=== PATIENT | female | born 1955 | race Hispanic/Latino ===

== ENCOUNTER 2017-03-11 19:25 | Emergency (ER) | payer MEDICARE ==
[2017-03-11 20:40] LABS: Basophils % (Auto) 0.8 % (0.0-1.8); Mean Corpuscular HGB Conc 36 % (30-34); Mean Corpuscular Hemoglobin 33 pg (28-32); Mean Corpuscular Volume 92 fl (79-97); Platelet Count 220 K/mm3 (140-440); Red Blood Count 4.49 M/mm3 (3.65-5.03); Red Cell Distribution Width 13.4 % (13.2-15.2); White Blood Count 8.4 K/mm3 (4.5-11.0)
[2017-03-11 20:44] LABS: Hematocrit 41.5 % (30.3-42.9)
[2017-03-11 21:03] LABS: Alanine Aminotransferase 20 units/L (7-56); Albumin 4.2 g/dL (3.9-5); Albumin/Globulin Ratio 1.6 %; Alkaline Phosphatase 50 units/L (35-129); Anion Gap 20 mmol/L; Blood Urea Nitrogen 10 mg/dL (7-17); Calcium 9.5 mg/dL (8.4-10.2); Carbon Dioxide 25 mmol/L (22-30); Chloride 100.5 mmol/L (98-107); Glucose 113 mg/dL (65-100); Potassium 4.7 mmol/L (3.6-5.0); Sodium 141 mmol/L (137-145); Total Protein 6.9 g/dL (6.3-8.2)
[2017-03-11 21:39] LABS: Bilirubin,Urine NEG (Negative); Blood,Urine NEG (Negative); Ketones,Urine NEG (Negative); Leukocyte Esterase,Urine NEG (Negative); Nitrite,Urine NEG (Negative); Protein,Urine <15 mg/dL mg/dL (Negative); Urobilinogen,Urine < 2.0 mg/dL (<2.0)
[2017-03-11] MEDS ORDERED: ZOFRAN ONE (21:42)
[2017-03-11] MEDS ORDERED: DILAUDID ONE (21:43)
[2017-03-11] MEDS ORDERED: ZOFRAN IM ONE (21:45)
[2017-03-11] MEDS ORDERED: DILAUDID IM ONE (21:45)
--- NOTE | 2017-03-11 23:14 | Cat Scan Report ---
FINAL REPORT EXAM: CT ABDOMEN PELVIS W CON HISTORY: abd pain TECHNIQUE: Serial axial images through the abdomen and pelvis with coronal and sagittal reconstruction. PRIORS: None. FINDINGS: There is mild atelectasis in the anterior aspect of the upper lobe and medial aspect of the right middle lobe. No pleural effusion is seen. Gallbladder is surgically absent. The liver, pancreas, spleen and adrenal glands appear within normal limits. Kidneys appear normal. Aorta is normal in caliber. Bladder appears normal. No gross abnormality is seen in the uterus or adnexa. Appendix appears normal. Scattered diverticula are seen arising from the colon. No free fluid. There are degenerative changes in the spine. Sequelae from L4-5 fusion are noted. IMPRESSION: 1. Normal appearing appendix. 2. No free fluid or inflammatory changes are seen in the abdomen or pelvis. 3. Diverticulosis.
--- NOTE | 2017-03-11 23:48 | Emergency Department Report ---
HPI - General Chief Complaint: Abdominal Pain Time Seen by Provider: 03/11/17 20:29 - HPI HPI: 62-year-old female presents to ED with abdominal pain right upper quadrant pain starting on this morning patient had a history of gallstones status post cholecystectomy. She states that her pain is accompanied by nausea , vomiting and urinary symptoms but no diarrhea. Patient has not taking any medication at home for his symptoms. She denies any exacerbating factors. She denies any alleviating factors. She denies any recent travel, or unusual foods. She denies any sick contacts. MD Complaint: abdominal pain -: Gradual Location: Right upper quadrant Radiation: none Migration to: no migration Severity scale (0 -10): 10 Quality: sharp Improves With: nothing Associated Symptoms: nausea, vomiting, chills ED Past Medical Hx - Past Medical History Previous Medical History?: Yes Hx Hypertension: Yes Hx CVA: Yes (x2) Hx Heart Attack/AMI: No Hx Congestive Heart Failure: No Hx Diabetes: No Hx Deep Vein Thrombosis: No Hx Pulmonary Embolism: No Hx GERD: No Hx Liver Disease: No Hx Renal Disease: No Hx Sickle Cell Disease: No Hx Arthritis: Yes Hx Headaches / Migraines: No Hx Seizures: No Hx Kidney Stones: No Hx Psychiatric Treatment: No Hx Asthma: No Hx COPD: Yes Hx Tuberculosis: No Hx Dementia: No Hx HIV: No - Surgical History Past Surgical History?: Yes Hx Coronary Stent: No Hx Open Heart Surgery: No Hx Pacemaker: No Hx Internal Defibrillator: No Hx Cholecystectomy: Yes (2yrs ago) Hx Appendectomy: No Hx Breast Surgery: No Additional Surgical History: surgery on back x4. bladder surgery as a child. Tonsils removed as well - Social History Smoking Status: Current Every Day Smoker Substance Use Type: Alcohol - Medications Home Medications: Home Medications Medication Instructions Recorded Confirmed Last Taken Type Gabapentin 300 mg PO TID 09/07/14 09/07/14 Unknown History HYDROcodone/APAP 10-325 [Lamont 1 mg PO TID 09/07/14 09/07/14 Unknown History 10-325 mg TAB] Omeprazole [PriLOSEC] 20 mg PO DAILY 09/07/14 09/07/14 Unknown History tiZANidine [Zanaflex] 4 mg PO QHS 09/07/14 09/07/14 Unknown History Diazepam Tab [Valium] 5 mg PO BID PRN #10 tablet 09/08/14 Unknown Rx HYDROcodone/APAP 10-325 [Lamont 1 each PO Q8HR PRN #20 tablet 09/08/14 Unknown Rx 10/325] Naproxen [Naprosyn TAB] 500 mg PO BID PRN #30 tablet 09/08/14 Unknown Rx Dicyclomine [Bentyl] 10 mg PO QID #30 capsule 03/11/17 Unknown Rx ED Review of Systems ROS: Stated complaint: NAUSEA, STOMACH PAIN AND RIGHT SIDE PAIN Other details as noted in HPI Comment: All other systems reviewed and negative Cardiovascular: denies: chest pain, palpitations Endocrine: no symptoms reported Gastrointestinal: abdominal pain, nausea Genitourinary: as per HPI Physical Exam - Physical Exam Vital Signs: Vital Signs 03/11/17 03/11/17 19:53 22:17 Temperature 97.9 F Pulse Rate 91 H Respiratory 26 H 14 Rate Blood Pressure 128/76 O2 Sat by Pulse 99 Oximetry Physical Exam: Physical Exam: - General Limitations: No Limitations General appearance: alert, in no apparent distress - Head Head exam: Present: atraumatic, normocephalic - Eye Eye exam: Present: normal appearance - ENT ENT exam: Present: mucous membranes moist - Neck Neck exam: Present: normal inspection - Respiratory Respiratory exam: Present: normal lung sounds bilaterally. Absent: respiratory distress - Cardiovascular Cardiovascular Exam: Present: normal rhythm. Absent: systolic murmur, diastolic murmur, rubs, gallop - GI/Abdominal GI/Abdominal exam: Present: soft, epigastric tenderness - Extremities Exam Extremities exam: Present: normal inspection - Back Exam Back exam: Present: normal inspection - Neurological Exam Neurological exam: Present: alert, oriented X3 - Psychiatric Psychiatric exam: normal affect and mood - Skin Skin exam: Present: warm, dry, intact, normal color. Absent: rash ED Course Vital Signs 03/11/17 03/11/17 19:53 22:17 Temperature 97.9 F Pulse Rate 91 H Respiratory 26 H 14 Rate Blood Pressure 128/76 O2 Sat by Pulse 99 Oximetry ED Medical Decision Making - Lab Data Result diagrams: 03/11/17 20:11 03/11/17 20:11 Critical care attestation.: If time is entered above; I have spent that time in minutes in the direct care of this critically ill patient, excluding procedure time. ED Disposition Clinical Impression: Abdominal pain Qualifiers: Abdominal location: generalized Qualified Code(s): R10.84 - Generalized abdominal pain Disposition: TO HOME OR SELFCARE Is pt being admited?: No Does the pt Need Aspirin: No Condition: Stable Instructions: Abdominal Pain (ED) Prescriptions: Dicyclomine [Bentyl] 10 mg PO QID #30 capsule Referrals: PRIMARY CARE, [Primary Care Provider] - 3-5 Days
[2017-03-12 02:42] VITALS: BP 136/74
== END 2017-03-12 01:07 | disposition home or self-care (01) ==
LOC: ED 19:25
DX: R10.84 Generalized abdominal pain (principal); I10 Essential (primary) hypertension; Z86.73 Personal history of transient ischemic attack (TIA), and cerebral infarction without residual deficits; M19.90 Unspecified osteoarthritis, unspecified site; J44.9 Chronic obstructive pulmonary disease, unspecified; F17.200 Nicotine dependence, unspecified, uncomplicated
CPT/HCPCS: 36415; 74177; 80053; 81001; 83690; 85025; 96372; 99284; J1170; J2405; Q9967

== ENCOUNTER 2017-04-12 20:38 | Emergency (ER) | payer MEDICARE ==
--- NOTE | 2017-04-12 22:03 | Cat Scan Report ---
FINAL REPORT PROCEDURE: CT HEAD/BRAIN WO CON TECHNIQUE: Computerized tomography of the head was performed without contrast material. HISTORY: neuro deficits \T\lt; 6hrs or sx present upon awakening COMPARISON: No prior studies are available for comparison. FINDINGS: No CT evidence of intracranial mass, hemorrhage, acute territorial infarction, or hydrocephalus. Choroid calcifications are noted bilaterally. Calvarium is intact. Visualized paranasal sinuses are aerated. There is a small amount of fluid density in the right mastoid. IMPRESSION: No CT evidence of acute intracranial abnormality
[2017-04-12 22:14] LABS: Urine Drugs of Abuse Note Disclamer
[2017-04-12 22:31] LABS: Bilirubin,Urine NEG (Negative); Blood,Urine SM (Negative); Ketones,Urine NEG (Negative); Leukocyte Esterase,Urine NEG (Negative); Mucus,Urine FEW /HPF; Nitrite,Urine NEG (Negative); Protein,Urine <15 mg/dL mg/dL (Negative); Urobilinogen,Urine < 2.0 mg/dL (<2.0)
[2017-04-12 22:45] LABS: Basophils % (Auto) 0.9 % (0.0-1.8); Eosinophils % (Auto) 0.1 % (0.0-4.3); Hematocrit 41.4 % (30.3-42.9); Hemoglobin 14.5 gm/dl (10.1-14.3); Mean Corpuscular HGB Conc 35 % (30-34); Mean Corpuscular Hemoglobin 33 pg (28-32); Mean Corpuscular Volume 93 fl (79-97); Platelet Count 224 K/mm3 (140-440); Red Blood Count 4.47 M/mm3 (3.65-5.03); Red Cell Distribution Width 13.3 % (13.2-15.2); White Blood Count 9.8 K/mm3 (4.5-11.0)
[2017-04-12 22:54] LABS: Alanine Aminotransferase 18 units/L (7-56); Albumin 4.3 g/dL (3.9-5); Albumin/Globulin Ratio 1.7 %; Alkaline Phosphatase 47 units/L (35-129); Anion Gap 19 mmol/L; BUN/Creatinine Ratio 10; Blood Urea Nitrogen 8 mg/dL (7-17); Carbon Dioxide 28 mmol/L (22-30); Chloride 104.6 mmol/L (98-107); Glucose 117 mg/dL (65-100); Potassium 4.5 mmol/L (3.6-5.0); Sodium 147 mmol/L (137-145); Total Protein 6.8 g/dL (6.3-8.2)
[2017-04-12 22:56] LABS: INR 0.85 (0.87-1.13); Partial Thromboplastin Time 27.9 Sec. (24.2-36.6)
--- NOTE | 2017-04-13 01:23 | Emergency Department Report ---
ED General Adult HPI - General Chief complaint: Neuro Symptoms/Deficit Stated complaint: DIZZY Time Seen by Provider: 04/13/17 01:05 Source: patient, RN notes reviewed, old records reviewed Mode of arrival: Ambulatory Limitations: No Limitations - History of Present Illness Initial comments: This is a 62-year-old female, the patient is previously unknown to this provider. She reports a history of transient ischemic attack, is currently on Plavix, endorses compliance with Plavix, and also has a history of chronic pain , back pain, has her pain specialist Dr. Johnston The patient reports taking multiple sedating medications, including Percocet, gabapentin, and diazepam. The patient presents to the ER with a complaint of dizziness, visual disturbance, and "confusion." The symptoms have been present for weeks to months. Patient describes the dizziness as a sensation of "head spinning." She reports "buzzing" over the past few weeks. There is no trauma, there is no neck pain, there is no neck stiffness. She reports that in mid December , she was watching TV, and saw" splash of right" all over her right eye. This was painless. It lasted for 1 day in December. It has since resolved. Since then , she endorses intermittent "blurry vision" for weeks and months. She can't recall the last time she got her eyes checked by an heel room supervisor or admissions manager. She is not having any head pain or neck pain. Patient also endorses a sensation of "confusion." She reports that she sometimes "doesn't know where I am." This has been going on for weeks to months. She describes dysuria, and chronic "hard esophagus." There is no temporal pain. There is no extremity weakness focally, there is no shortening on this, there are no falls. -: Gradual Consistency: intermittent Improves with: none Worsens with: none Associated Symptoms: confusion, weakness - Related Data Home Medications Medication Instructions Recorded Confirmed Last Taken Gabapentin 300 mg PO TID 09/07/14 09/07/14 Unknown HYDROcodone/APAP 10-325 [[place] 1 mg PO TID 09/07/14 09/07/14 Unknown 10-325 mg TAB] Omeprazole [PriLOSEC] 20 mg PO DAILY 09/07/14 09/07/14 Unknown tiZANidine [Zanaflex] 4 mg PO QHS 09/07/14 09/07/14 Unknown Previous Rx's Medication Instructions Recorded Last Taken Type Diazepam Tab [Valium] 5 mg PO BID PRN #10 tablet 09/08/14 Unknown Rx HYDROcodone/APAP 10-325 [[place] 1 each PO Q8HR PRN #20 tablet 09/08/14 Unknown Rx 10/325] Naproxen [Naprosyn TAB] 500 mg PO BID PRN #30 tablet 09/08/14 Unknown Rx Dicyclomine [Bentyl] 10 mg PO QID #30 capsule 03/11/17 Unknown Rx Allergies Allergy/AdvReac Type Severity Reaction Status Date / Time No Known Allergies Allergy Verified 01/21/14 00:33 ED Review of Systems ROS: Stated complaint: DIZZY Other details as noted in HPI Constitutional: malaise, weakness Eyes: vision change. denies: eye pain ENT: denies: throat pain Respiratory: denies: cough Cardiovascular: denies: chest pain Gastrointestinal: denies: vomiting Genitourinary: dysuria Musculoskeletal: back pain, arthralgia, myalgia Skin: denies: lesions Neurological: weakness Psychiatric: anxiety ED Past Medical Hx - Past Medical History Previous Medical History?: Yes Hx Hypertension: Yes Hx CVA: Yes (x2) Hx Heart Attack/AMI: No Hx Congestive Heart Failure: No Hx Diabetes: No Hx Deep Vein Thrombosis: No Hx Pulmonary Embolism: No Hx GERD: No Hx Liver Disease: No Hx Renal Disease: No Hx Sickle Cell Disease: No Hx Arthritis: Yes Hx Headaches / Migraines: No Hx Seizures: No Hx Kidney Stones: No Hx Psychiatric Treatment: No Hx Asthma: No Hx COPD: Yes Hx Tuberculosis: No Hx Dementia: No Hx HIV: No - Surgical History Past Surgical History?: Yes Hx Coronary Stent: No Hx Open Heart Surgery: No Hx Pacemaker: No Hx Internal Defibrillator: No Hx Cholecystectomy: Yes (2yrs ago) Hx Appendectomy: No Hx Breast Surgery: No Additional Surgical History: surgery on back x4. bladder surgery as a child. Tonsils removed as well - Social History Smoking Status: Current Every Day Smoker Substance Use Type: Alcohol - Medications Home Medications: Home Medications Medication Instructions Recorded Confirmed Last Taken Type Gabapentin 300 mg PO TID 09/07/14 09/07/14 Unknown History HYDROcodone/APAP 10-325 [[place] 1 mg PO TID 03/07/15 03/07/15 Unknown History 10-325 mg TAB] Omeprazole [PriLOSEC] 20 mg PO DAILY 09/07/14 09/07/14 Unknown History tiZANidine [Zanaflex] 4 mg PO QHS 09/07/14 09/07/14 Unknown History Diazepam Tab [Valium] 5 mg PO BID PRN #10 tablet 09/08/14 Unknown Rx HYDROcodone/APAP 10-325 [[place] 1 each PO Q8HR PRN #20 tablet 09/08/14 Unknown Rx 10/325] Naproxen [Naprosyn TAB] 500 mg PO BID PRN #30 tablet 09/08/14 Unknown Rx Dicyclomine [Bentyl] 10 mg PO QID #30 capsule 03/11/17 Unknown Rx ED Physical Exam - General Limitations: No Limitations General appearance: alert, in no apparent distress, other (there is no mastoid tenderness. There is no asymmetry to the ears.) - Head Head exam: Present: atraumatic, normocephalic - Eye Eye exam: Present: normal appearance, PERRL, EOMI, other (visual acuity intact to finger counting, color perception, reading at a close distance). Absent: nystagmus - ENT ENT exam: Present: normal exam, normal orophraynx, mucous membranes moist, TM's normal bilaterally, normal external ear exam, other (there is no temporal tenderness. There are no carotid bruits.) - Neck Neck exam: Present: normal inspection, full ROM. Absent: tenderness, meningismus - Respiratory Respiratory exam: Present: normal lung sounds bilaterally. Absent: respiratory distress, wheezes, rales, rhonchi, stridor, chest wall tenderness, accessory muscle use, decreased breath sounds, prolonged expiratory - Cardiovascular Cardiovascular Exam: Present: regular rate, normal rhythm, normal heart sounds. Absent: bradycardia, tachycardia, irregular rhythm, systolic murmur, diastolic murmur, rubs, gallop - GI/Abdominal GI/Abdominal exam: Present: soft, normal bowel sounds. Absent: distended, tenderness, guarding, rebound, rigid, pulsatile mass - Extremities Exam Extremities exam: Present: normal inspection, full ROM, normal capillary refill , other (there is no past pointing. There is normal [id number]. There is negative pronator drift.). Absent: pedal edema, joint swelling, calf tenderness - Back Exam Back exam: Present: normal inspection, full ROM. Absent: tenderness, CVA tenderness (R), CVA tenderness (L), muscle spasm, paraspinal tenderness, vertebral tenderness - Neurological Exam Neurological exam: Present: alert (patient is able to multiply, and, spell "world." Patient is able to recall 2 out of 3 words at 5 and 10 minutes. Patient demonstrates the ability to reason (she states that it will hurt if she crashes her car into a brick wall.)), oriented X3, normal gait, other ( Extraocular movements intact. Tongue midline. No facial droop. Facial sensation intact to light touch in the V1, V2, V3 distribution bilaterally. 5 and 5 strength in 4 extremities.. Sensation is intact to light touch in 4 extremities.). Absent: motor sensory deficit - Psychiatric Psychiatric exam: Present: normal affect, normal mood - Skin Skin exam: Present: warm, dry, intact, normal color. Absent: rash ED Course Vital Signs 04/12/17 04/13/17 20:51 02:12 Temperature 98.7 F Pulse Rate 93 H 76 Respiratory 18 18 Rate Blood Pressure 134/80 Blood Pressure 124/79 [Left] O2 Sat by Pulse 95 99 Oximetry - Reevaluation(s) Reevaluation #1: 04/13/17 02:01 There is no temporal tenderness. There is no jaw claudication. Visual acuity intact to finger counting, reading, color perception at a close distance, and there are no visual field cuts on direct confrontation, temporal arteritis very unlikely. ED Medical Decision Making - Lab Data Result diagrams: 04/12/17 22:09 04/12/17 22:09 Vital Signs 04/12/17 20:51 Temperature 98.7 F Pulse Rate 93 H Respiratory 18 Rate Blood Pressure 134/80 O2 Sat by Pulse 95 Oximetry Lab Results 04/12/17 04/12/17 04/12/17 Range/Units 22:07 22:07 22:09 WBC 9.8 (4.5-11.0) K/mm3 RBC 4.47 (3.65-5.03) M/mm3 Hgb 14.5 H (10.1-14.3) gm/dl Hct 41.4 (30.3-42.9) % MCV 93 (79-97) fl MCH 33 H (28-32) pg MCHC 35 H (30-34) % RDW 13.3 (13.2-15.2) % Plt Count 224 (140-440) K/mm3 Lymph % (Auto) 34.2 (13.4-35.0) % [place] % (Auto) 3.5 (0.0-7.3) % Eos % (Auto) 0.1 (0.0-4.3) % Baso % (Auto) 0.9 (0.0-1.8) % Lymph # 3.4 (1.2-5.4) K/mm3 [place] # 0.3 (0.0-0.8) K/mm3 Eos # 0.0 (0.0-0.4) K/mm3 Baso # 0.1 (0.0-0.1) K/mm3 Seg Neutrophils % 61.3 (40.0-70.0) % Seg Neutrophils # 6.0 (1.8-7.7) K/mm3 PT (12.2-14.9) Sec. INR (0.87-1.13) APTT (24.2-36.6) Sec. Thrombin Time (15.1-19.6) Sec. Sodium (137-145) mmol/L Potassium (3.6-5.0) mmol/L Chloride (98-107) mmol/L Carbon Dioxide (22-30) mmol/L Anion Gap mmol/L BUN (7-17) mg/dL Creatinine (0.7-1.2) mg/dL Estimated GFR ml/min BUN/Creatinine Ratio % Glucose (65-100) mg/dL Lactic Acid (0.7-2.0) mmol/L Calcium (8.4-10.2) mg/dL Magnesium (1.7-2.3) mg/dL Total Bilirubin (0.1-1.2) mg/dL AST (5-40) units/L ALT (7-56) units/L Alkaline Phosphatase (35-129) units/L Troponin T (0.00-0.029) ng/mL Total Protein (6.3-8.2) g/dL Albumin (3.9-5) g/dL Albumin/Globulin Ratio % TSH (0.270-4.200) mlU/mL Urine Color Yellow (Yellow) Urine Turbidity Clear (Clear) Urine pH 6.0 (5.0-7.0) Ur Specific [place] 1.010 (1.003-1.030) Urine Protein <15 mg/dl (Negative) mg/dL Urine Glucose (UA) Neg (Negative) mg/dL Urine Ketones Neg (Negative) mg/dL Urine Blood Sm (Negative) Urine Nitrite Neg (Negative) Urine Bilirubin Neg (Negative) Urine Urobilinogen < 2.0 (<2.0) mg/dL Ur Leukocyte Esterase Neg (Negative) Urine WBC (Auto) 1.0 (0.0-6.0) /HPF Urine RBC (Auto) 2.0 (0.0-6.0) /HPF U Epithel Cells (Auto) 2.0 (0-13.0) /HPF Hyaline Casts 1 /LPF Urine Mucus Few /HPF Salicylates (2.8-20.0) mg/dL Urine Opiates Screen Presumptive negative Urine Methadone Screen Presumptive negative Acetaminophen (10.0-30.0) ug/mL Ur Barbiturates Screen Presumptive negative Ur Phencyclidine Scrn Presumptive negative Ur Amphetamines Screen Presumptive negative U Benzodiazepines Scrn Presumptive negative Urine Cocaine Screen Presumptive negative U Marijuana (THC) Screen Presumptive negative Drugs of Abuse Note Disclamer Plasma/Serum Alcohol (0-0.07) gm% 04/12/17 04/12/17 04/12/17 Range/Units 22:09 22:09 22:09 WBC (4.5-11.0) K/mm3 RBC (3.65-5.03) M/mm3 Hgb (10.1-14.3) gm/dl Hct (30.3-42.9) % MCV (79-97) fl MCH (28-32) pg MCHC (30-34) % RDW (13.2-15.2) % Plt Count (140-440) K/mm3 Lymph % (Auto) (13.4-35.0) % [place] % (Auto) (0.0-7.3) % Eos % (Auto) (0.0-4.3) % Baso % (Auto) (0.0-1.8) % Lymph # (1.2-5.4) K/mm3 [place] # (0.0-0.8) K/mm3 Eos # (0.0-0.4) K/mm3 Baso # (0.0-0.1) K/mm3 Seg Neutrophils % (40.0-70.0) % Seg Neutrophils # (1.8-7.7) K/mm3 PT 12.0 L (12.2-14.9) Sec. INR 0.85 L (0.87-1.13) APTT 27.9 (24.2-36.6) Sec. Thrombin Time (15.1-19.6) Sec. Sodium 147 H (137-145) mmol/L Potassium 4.5 (3.6-5.0) mmol/L Chloride 104.6 (98-107) mmol/L Carbon Dioxide 28 (22-30) mmol/L Anion Gap 19 mmol/L BUN 8 (7-17) mg/dL Creatinine 0.8 (0.7-1.2) mg/dL Estimated GFR > 60 ml/min BUN/Creatinine Ratio 10 % Glucose 117 H (65-100) mg/dL Lactic Acid 2.50 H* (0.7-2.0) mmol/L Calcium 9.0 (8.4-10.2) mg/dL Magnesium 2.00 (1.7-2.3) mg/dL Total Bilirubin 0.30 (0.1-1.2) mg/dL AST 16 (5-40) units/L ALT 18 (7-56) units/L Alkaline Phosphatase 47 (35-129) units/L Troponin T < 0.010 (0.00-0.029) ng/mL Total Protein 6.8 (6.3-8.2) g/dL Albumin 4.3 (3.9-5) g/dL Albumin/Globulin Ratio 1.7 % TSH (0.270-4.200) mlU/mL Urine Color (Yellow) Urine Turbidity (Clear) Urine pH (5.0-7.0) Ur Specific [place] (1.003-1.030) Urine Protein (Negative) mg/dL Urine Glucose (UA) (Negative) mg/dL Urine Ketones (Negative) mg/dL Urine Blood (Negative) Urine Nitrite (Negative) Urine Bilirubin (Negative) Urine Urobilinogen (<2.0) mg/dL Ur Leukocyte Esterase (Negative) Urine WBC (Auto) (0.0-6.0) /HPF Urine RBC (Auto) (0.0-6.0) /HPF U Epithel Cells (Auto) (0-13.0) /HPF Hyaline Casts /LPF Urine Mucus /HPF Salicylates (2.8-20.0) mg/dL Urine Opiates Screen Urine Methadone Screen Acetaminophen (10.0-30.0) ug/mL Ur Barbiturates Screen Ur Phencyclidine Scrn Ur Amphetamines Screen U Benzodiazepines Scrn Urine Cocaine Screen U Marijuana (THC) Screen Drugs of Abuse Note Plasma/Serum Alcohol (0-0.07) gm% 04/12/17 04/12/17 04/12/17 Range/Units 22:09 22:09 22:09 WBC (4.5-11.0) K/mm3 RBC (3.65-5.03) M/mm3 Hgb (10.1-14.3) gm/dl Hct (30.3-42.9) % MCV (79-97) fl MCH (28-32) pg MCHC (30-34) % RDW (13.2-15.2) % Plt Count (140-440) K/mm3 Lymph % (Auto) (13.4-35.0) % [place] % (Auto) (0.0-7.3) % Eos % (Auto) (0.0-4.3) % Baso % (Auto) (0.0-1.8) % Lymph # (1.2-5.4) K/mm3 [place] # (0.0-0.8) K/mm3 Eos # (0.0-0.4) K/mm3 Baso # (0.0-0.1) K/mm3 Seg Neutrophils % (40.0-70.0) % Seg Neutrophils # (1.8-7.7) K/mm3 PT (12.2-14.9) Sec. INR (0.87-1.13) APTT (24.2-36.6) Sec. Thrombin Time (15.1-19.6) Sec. Sodium (137-145) mmol/L Potassium (3.6-5.0) mmol/L Chloride (98-107) mmol/L Carbon Dioxide (22-30) mmol/L Anion Gap mmol/L BUN (7-17) mg/dL Creatinine (0.7-1.2) mg/dL Estimated GFR ml/min BUN/Creatinine Ratio % Glucose (65-100) mg/dL Lactic Acid (0.7-2.0) mmol/L Calcium (8.4-10.2) mg/dL Magnesium (1.7-2.3) mg/dL Total Bilirubin (0.1-1.2) mg/dL AST (5-40) units/L ALT (7-56) units/L Alkaline Phosphatase (35-129) units/L Troponin T (0.00-0.029) ng/mL Total Protein (6.3-8.2) g/dL Albumin (3.9-5) g/dL Albumin/Globulin Ratio % TSH 2.520 (0.270-4.200) mlU/mL Urine Color (Yellow) Urine Turbidity (Clear) Urine pH (5.0-7.0) Ur Specific [place] (1.003-1.030) Urine Protein (Negative) mg/dL Urine Glucose (UA) (Negative) mg/dL Urine Ketones (Negative) mg/dL Urine Blood (Negative) Urine Nitrite (Negative) Urine Bilirubin (Negative) Urine Urobilinogen (<2.0) mg/dL Ur Leukocyte Esterase (Negative) Urine WBC (Auto) (0.0-6.0) /HPF Urine RBC (Auto) (0.0-6.0) /HPF U Epithel Cells (Auto) (0-13.0) /HPF Hyaline Casts /LPF Urine Mucus /HPF Salicylates < 0.3 L (2.8-20.0) mg/dL Urine Opiates Screen Urine Methadone Screen Acetaminophen < 15.0 (10.0-30.0) ug/mL Ur Barbiturates Screen Ur Phencyclidine Scrn Ur Amphetamines Screen U Benzodiazepines Scrn Urine Cocaine Screen U Marijuana (THC) Screen Drugs of Abuse Note Plasma/Serum Alcohol (0-0.07) gm% 04/12/17 04/12/17 Range/Units 22:09 22:09 WBC (4.5-11.0) K/mm3 RBC (3.65-5.03) M/mm3 Hgb (10.1-14.3) gm/dl Hct (30.3-42.9) % MCV (79-97) fl MCH (28-32) pg MCHC (30-34) % RDW (13.2-15.2) % Plt Count (140-440) K/mm3 Lymph % (Auto) (13.4-35.0) % [place] % (Auto) (0.0-7.3) % Eos % (Auto) (0.0-4.3) % Baso % (Auto) (0.0-1.8) % Lymph # (1.2-5.4) K/mm3 [place] # (0.0-0.8) K/mm3 Eos # (0.0-0.4) K/mm3 Baso # (0.0-0.1) K/mm3 Seg Neutrophils % (40.0-70.0) % Seg Neutrophils # (1.8-7.7) K/mm3 PT (12.2-14.9) Sec. INR (0.87-1.13) APTT (24.2-36.6) Sec. Thrombin Time 15.9 (15.1-19.6) Sec. Sodium (137-145) mmol/L Potassium (3.6-5.0) mmol/L Chloride (98-107) mmol/L Carbon Dioxide (22-30) mmol/L Anion Gap mmol/L BUN (7-17) mg/dL Creatinine (0.7-1.2) mg/dL Estimated GFR ml/min BUN/Creatinine Ratio % Glucose (65-100) mg/dL Lactic Acid (0.7-2.0) mmol/L Calcium (8.4-10.2) mg/dL Magnesium (1.7-2.3) mg/dL Total Bilirubin (0.1-1.2) mg/dL AST (5-40) units/L ALT (7-56) units/L Alkaline Phosphatase (35-129) units/L Troponin T (0.00-0.029) ng/mL Total Protein (6.3-8.2) g/dL Albumin (3.9-5) g/dL Albumin/Globulin Ratio % TSH (0.270-4.200) mlU/mL Urine Color (Yellow) Urine Turbidity (Clear) Urine pH (5.0-7.0) Ur Specific [place] (1.003-1.030) Urine Protein (Negative) mg/dL Urine Glucose (UA) (Negative) mg/dL Urine Ketones (Negative) mg/dL Urine Blood (Negative) Urine Nitrite (Negative) Urine Bilirubin (Negative) Urine Urobilinogen (<2.0) mg/dL Ur Leukocyte Esterase (Negative) Urine WBC (Auto) (0.0-6.0) /HPF Urine RBC (Auto) (0.0-6.0) /HPF U Epithel Cells (Auto) (0-13.0) /HPF Hyaline Casts /LPF Urine Mucus /HPF Salicylates (2.8-20.0) mg/dL Urine Opiates Screen Urine Methadone Screen Acetaminophen (10.0-30.0) ug/mL Ur Barbiturates Screen Ur Phencyclidine Scrn Ur Amphetamines Screen U Benzodiazepines Scrn Urine Cocaine Screen U Marijuana (THC) Screen Drugs of Abuse Note Plasma/Serum Alcohol < 0.01 (0-0.07) gm% - EKG Data -: EKG Interpreted by Me - EKG Data 04/13/17 01:59 Sinus, 85 beats per minute, borderline left axis deviation, QTC prolonged, left ventricular hypertrophy, abnormal EKG, not morphologically consistent with STEMI - Radiology Data Radiology results: report reviewed, image reviewed Noncontrast CT scan of the brain is negative for acute disease - Medical Decision Making Differential diagnosis: Medication side effect, transient ischemic attack, urinary tract infection, multiple sclerosis, dementia, vascular dementia, Gen. medical evaluation Assessment and plan: 62-year-old female with weeks to months of nonspecific neurologic symptoms. She is afebrile, with reassuring vital signs, has a GCS of 15, NIH score of 0, walks with a steady gait, and is clinically sober. Urinalysis is not consistent with urinary tract infection, vital signs are stable, CT scan of the brain is negative for acute findings, lactic acid is in prior to my evaluation, I did not suspect serious bacterial infection or tissue dysoxia, or hypoperfusion based on the patient's history and physical. Her neurologic examination is unremarkable and within normal limits, has a very low risk by ABCD 2 score, and at this point in time, given duration of symptoms, atypical nature of symptoms, I do not believe the patient requires emergent admission to the hospital for stroke workup or evaluation. The patient is instructed to discontinue gabapentin, valium, Lortab, and to follow up with an outpatient primary care doctor or neurologist. She is afebrile with reassuring vital signs medically suitable for discharge with this plan of care. Return precautions are reviewed. Critical care attestation.: If time is entered above; I have spent that time in minutes in the direct care of this critically ill patient, excluding procedure time. ED Disposition Clinical Impression: Dizziness, History of confusion Disposition: DC-01 TO HOME OR SELFCARE Is pt being admited?: No Does the pt Need Aspirin: No Condition: Stable Additional Instructions: I recommend that the patient discontinue sedating medications, including Lortab , gabapentin, and diazepam. Follow-up with her primary care doctor or neurology specialist within the next week to 10 days. Return to the ER right away with slurred speech, extremity weakness, extremity numbness, unsteady gait , some onset change of mental status, chest pain, shortness of breath, intractable nausea or vomiting, inability to tolerate liquid feeds, defecating blood, vomiting blood. Referrals: PRIMARY CARE, [Primary Care Provider] - 3-5 Days ALFONSO MUNIZ MD [Staff Physician] - 3-5 Days LOUIS العراقي MD [Staff Physician] - 3-5 Days NAEL ZARATE MD [Staff Physician] - 3-5 Days
[2017-04-13 02:13] VITALS: BP 124/79
== END 2017-04-13 02:19 | disposition home or self-care (01) ==
LOC: ED 20:38
DX: R42 Dizziness and giddiness (principal); I10 Essential (primary) hypertension; J44.9 Chronic obstructive pulmonary disease, unspecified; M19.90 Unspecified osteoarthritis, unspecified site; F17.200 Nicotine dependence, unspecified, uncomplicated; Z90.49 Acquired absence of other specified parts of digestive tract; Z98.890 Other specified postprocedural states
CPT/HCPCS: 36415; 70450; 80048; 80053; 80307; 81001; 82140; 82962; 83735; 84443; 84484; 85025; 85610; 85670; 85730; 99285; G0480; 80320

== ENCOUNTER 2017-08-19 16:42 | Emergency (ER) | payer MEDICARE ==
[2017-08-19 17:43] LABS: Basophils # (Auto) 0.1 K/mm3 (0.0-0.1); Basophils % (Auto) 1.1 % (0.0-1.8); Eosinophils # (Auto) 0.1 K/mm3 (0.0-0.4); Eosinophils % (Auto) 1.3 % (0.0-4.3); Hematocrit 44.7 % (30.3-42.9); Hemoglobin 15.7 gm/dl (10.1-14.3); Lymphocytes # (Auto) 2.7 K/mm3 (1.2-5.4); Lymphocytes % (Auto) 29.1 % (13.4-35.0); Mean Corpuscular HGB Conc 35 % (30-34); Mean Corpuscular Hemoglobin 33 pg (28-32); Mean Corpuscular Volume 93 fl (79-97); Monocytes # (Auto) 0.5 K/mm3 (0.0-0.8); Monocytes % (Auto) 4.9 % (0.0-7.3); Platelet Count 227 K/mm3 (140-440); Red Blood Count 4.81 M/mm3 (3.65-5.03); Red Cell Distribution Width 13.4 % (13.2-15.2)
[2017-08-19] MEDS ORDERED: NITROSTAT SL PRN (17:45)
--- NOTE | 2017-08-19 17:47 | Emergency Department Report ---
ED Chest Pain HPI - General Chief Complaint: Chest Pain Stated Complaint: CHEST PAIN Time Seen by Provider: 08/19/17 17:34 Source: EMS Mode of arrival: Stretcher Limitations: Physical Limitation - History of Present Illness Initial Comments: 62-year-old female history of chest pain off and on for the last 3 hours. Took some nitroglycerin with questionable relief. Heart Dr. Pittman not sure if she has blockages according to the patient. She is here for evaluation of intermittent retrosternal left-sided chest pain off and on for the last several hours, pt stats had some type of w/u at [facility] several mos. ago "possibly a heart cath?" they couldn't quite visualize the vessel" according to ptk, she saw [facility] for eval, today had recurrent cp and presented here, is pain free now. MD Complaint: chest pain -: This afternoon, unknown Onset: during rest, during exertion Pain Location: substernal, left chest Pain Radiation: none Quality: tightness, aching Consistency: intermittent Improves With: nothing, nitroglycerin Worsens With: nothing - Related Data Home Medications Medication Instructions Recorded Confirmed Last Taken Gabapentin 300 mg PO TID 09/07/14 08/19/17 Unknown Allergies Allergy/AdvReac Type Severity Reaction Status Date / Time No Known Allergies Allergy Verified 01/21/14 00:33 Heart Score - HEART Score History: Slightly suspicious EKG: Non-specific Age: 45-65 Risk factors: 1-2 risk factors Troponin: < normal limit HEART Score: 3 ED Review of Systems ROS: Stated complaint: CHEST PAIN Other details as noted in HPI Comment: All other systems reviewed and negative Constitutional: denies: diaphoresis, fever, malaise ENT: denies: dental pain, hearing loss, epistaxis Respiratory: denies: orthopnea, shortness of breath, SOB with exertion, SOB at rest, stridor, wheezing Cardiovascular: chest pain. denies: palpitations, dyspnea on exertion, orthopnea, edema, syncope, paroxysmal nocturnal dyspnea Endocrine: denies: excessive sweating, flushing Gastrointestinal: denies: abdominal pain, nausea, vomiting, diarrhea, constipation, hematemesis, melena, hematochezia Neurological: denies: headache, weakness, numbness, paresthesias, confusion, abnormal gait, vertigo Psychiatric: denies: auditory hallucinations, visual hallucinations, homicidal thoughts, suicidal thoughts Hematological/Lymphatic: denies: easy bruising ED Past Medical Hx - Past Medical History Hx Hypertension: Yes Hx CVA: Yes (x2) Hx Heart Attack/AMI: No Hx Congestive Heart Failure: No Hx Diabetes: No Hx Deep Vein Thrombosis: No Hx Pulmonary Embolism: No Hx GERD: No Hx Liver Disease: No Hx Renal Disease: No Hx Sickle Cell Disease: No Hx Arthritis: Yes Hx Headaches / Migraines: No Hx Seizures: No Hx Kidney Stones: No Hx Psychiatric Treatment: No Hx Asthma: No Hx COPD: Yes Hx Tuberculosis: No Hx Dementia: No Hx HIV: No - Surgical History Hx Coronary Stent: No Hx Open Heart Surgery: No Hx Pacemaker: No Hx Internal Defibrillator: No Hx Cholecystectomy: Yes (2yrs ago) Hx Appendectomy: No Hx Breast Surgery: No Additional Surgical History: surgery on back x4. bladder surgery as a child. Tonsils removed as well - Social History Smoking Status: Current Every Day Smoker Substance Use Type: Alcohol - Medications Home Medications: Home Medications Medication Instructions Recorded Confirmed Last Taken Type Gabapentin 300 mg PO TID 09/07/14 08/19/17 Unknown History ED Physical Exam - General Limitations: Physical Limitation General appearance: alert, in no apparent distress, other (pain-free at present) - Head Head exam: Present: atraumatic, normocephalic - Eye Eye exam: Present: normal appearance, PERRL, EOMI - ENT ENT exam: Present: normal exam, normal orophraynx - Neck Neck exam: Present: normal inspection. Absent: tenderness, meningismus - Respiratory Respiratory exam: Present: normal lung sounds bilaterally. Absent: respiratory distress, wheezes, rales, rhonchi, stridor, chest wall tenderness, accessory muscle use, decreased breath sounds, prolonged expiratory - Cardiovascular Cardiovascular Exam: Present: regular rate, normal rhythm, normal heart sounds. Absent: bradycardia, tachycardia, irregular rhythm - GI/Abdominal GI/Abdominal exam: Present: soft. Absent: distended, tenderness, guarding, rebound, rigid, hyperactive bowel sounds, hypoactive bowel sounds, organomegaly , mass, bruit, pulsatile mass - Extremities Exam Extremities exam: Present: normal inspection. Absent: full ROM, tenderness, normal capillary refill, pedal edema, joint swelling, calf tenderness - Back Exam Back exam: Present: normal inspection. Absent: CVA tenderness (R), CVA tenderness (L), muscle spasm, paraspinal tenderness, vertebral tenderness - Neurological Exam Neurological exam: Present: alert, oriented X3, CN II-XII intact. Absent: motor sensory deficit - Skin Skin exam: Present: warm. Absent: cyanosis, diaphoretic, erythema, urticaria, vesicles, petechiae, pallor, abrasion, ecchymosis ED Course Vital Signs 08/19/17 08/19/17 08/19/17 17:19 17:31 17:45 Temperature 98.4 F Pulse Rate 76 82 79 Respiratory 20 17 15 Rate Blood Pressure 114/56 114/56 Blood Pressure 123/63 [Right] O2 Sat by Pulse 97 98 98 Oximetry 08/19/17 08/19/17 08/19/17 19:01 19:13 19:57 Temperature Pulse Rate 96 H 87 Respiratory 19 18 16 Rate Blood Pressure 114/56 Blood Pressure 117/86 [Right] O2 Sat by Pulse 96 97 Oximetry 08/19/17 20:05 Temperature Pulse Rate 80 Respiratory Rate Blood Pressure 117/61 Blood Pressure [Right] O2 Sat by Pulse Oximetry ED Medical Decision Making - Lab Data Result diagrams: 08/19/17 17:21 08/19/17 17:21 - EKG Data -: EKG Interpreted by Nc EKG shows normal: sinus rhythm - EKG Data Interpretation: nonspecific ST-T wave darlene, other (ischemic change not seen, no acute ischemnic changes) - Radiology Data Radiology results: report reviewed - Medical Decision Making Patient apparently does work in general in the recent past those records are unavailable at this time today she had a recurrent episode of chest pain. Heart scores 3 chest pain was resolved she is a chronic pain patient she did have some relief with nitroglycerin on route although she is not a great historian. She is pain-free now. She's not sure she had a heart cath at [facility] several months ago she thinks she might have. She thinks they may have told her that they were unable to visualize all the vessels however they did not send her for a CABG or stents. When I further discussed with the patient and we would likely consider admitting her she did refuse admission at this time. Heart scores 3 troponin was negative chest x-ray was negative she has tobacco risk factors and history was somewhat worrisome. She has a tobacco history as well. She was informed of risks of leaving including ACS arrhythmia and that she is alert and oriented 3 and is competent to make decisions she is not intoxicated she was informed of risk and will sign out AMA she says that she is feeling better given the negative initial troponin workup she wants to see her R specialist in the clinic she will return immediately if nor alarming symptoms or call 911 she did verbalize understanding of the risks of leaving including and arrhythmia and ACS.and competent to make decisions and will sign ama. Critical care attestation.: If time is entered above; I have spent that time in minutes in the direct care of this critically ill patient, excluding procedure time. ED Disposition Clinical Impression: Chest pain Disposition: [id number] LEFT AGAINST MED ADVICE Is pt being admited?: No Condition: Stable Instructions: Chest Pain (ED) Additional Instructions: Return immediately if new alarming symptoms or call 911 see your and [facility] MARIO Referrals: HAYLIE GREENWOOD MD [Primary Care Provider] - 3-5 Days TAD LOWERY MD [Staff Physician] - 3-5 Days Time of Disposition: 21:21
[2017-08-19 18:05] LABS: BUN/Creatinine Ratio 10; Blood Urea Nitrogen 7 mg/dL (7-17); Calcium 8.7 mg/dL (8.4-10.2); Hemolysis Index 17
--- NOTE | 2017-08-19 20:19 | XRay Report ---
FINAL REPORT PROCEDURE: XR CHEST 1V AP TECHNIQUE: Chest radiograph anteroposterior view. CPT 25521 HISTORY: Chest Pain COMPARISON: No prior studies are available for comparison. FINDINGS: Heart: Normal. Mediastinum/Vessels: Normal. Lungs/Pleural space: Normal. Bony thorax: No acute osseous abnormality. Life support devices: None. IMPRESSION: No acute cardiopulmonary abnormality.
[2017-08-19] MEDS ORDERED: ASPIRIN PO ONE (20:52)
[2017-08-19 21:15] VITALS: BP 100/67
== END 2017-08-19 21:29 | disposition left against medical advice (07) ==
LOC: ED 16:42
DX: R07.89 Other chest pain (principal); I10 Essential (primary) hypertension; M19.90 Unspecified osteoarthritis, unspecified site; J44.9 Chronic obstructive pulmonary disease, unspecified; F17.200 Nicotine dependence, unspecified, uncomplicated; Z86.73 Personal history of transient ischemic attack (TIA), and cerebral infarction without residual deficits; Z90.49 Acquired absence of other specified parts of digestive tract
CPT/HCPCS: 36415; 71045; 80048; 84484; 85025; 93005; 93010; 99285